=== PATIENT | female | born 1980 | race Caucasian/White ===

== ENCOUNTER 2021-10-25 13:56 | Emergency (ER) | payer OTHER ==
[~2021-10-25] VITALS: Ht 172.7 cm; Wt 115.7 kg
== END 2021-10-25 15:34 | disposition home or self-care (01) ==
LOC: FSED 14:10
DX: O26.891 Other specified pregnancy related conditions, first trimester (principal); R07.9 Chest pain, unspecified; Z3A.09 9 weeks gestation of pregnancy; R20.0 Anesthesia of skin
CPT/HCPCS: 71046; 80053; 81003; 81025; 82553; 84484; 85025; 93005; 99283